=== PATIENT | female | born 1990 | race Caucasian/White ===

== ENCOUNTER 2018-10-17 14:11 | Outpatient (CLI) | payer OTHER ==
[2018-10-17 15:13] VITALS: PULSE 83; RESP 16; TEMP 99.5
--- NOTE | 2018-10-28 11:14 | P.MSEPDOC ---
Presenting Problems - Arrival Data Date of Arrival on Unit: 10/17/18 Time of Arrival on Unit: 14:25 Mode of Transport: Ambulatory - Complaint OB-Reason for Admission/Chief Complaint: Rule Out PROM Medical History - Information : 1 Para: 0 Term: 0 : 0 Abortions: Spontaneous or Elective: 0 Number of Living Children: 0 - Gestational Age Gestational Age by NOEL (wks/days): 34 Weeks and 3 Days - History Complications: Smoker Review of Systems - Review of Systems Constitutional: No problems Breast: No problems ENT: No problems Cardiovascular: No problems Respiratory: No problems Gastrointestinal: No problems Genitourinary: No problems Musculoskeletal: No problems Neurological: No problems Skin: No problems Vital Signs - Temperature Temperature: 99.5 F Temperature Source: Oral - Pulse Right Brachial Pulse Rate: 83 Pulse Assessment Method: Automatic Cuff - Respirations Respiratory Rate: 16 Oxygen Delivery Method: Room Air Medical Screen Scoring (Pre) - Cervical Exam Dilation: 0 cm = 0 Membranes: Intact - Uterine Contractions Frequency: N/A Duration: N/A Intensity: N/A - Maternal Vital Signs Maternal Temperature: N/A Maternal Blood Pressure: N/A Signs of Preeclampsia: N/A Maternal Respirations: N/A - Maternal Trauma Maternal Trauma: N/A - Assessment - Baby A Baseline FHR: 135 Heart Rate - NICHD Category: Category I (Normal) = 0 NST: Reactive Position: N/A Station: N/A - Total Score - Baby A Total Score - Baby A: 0 - Total Score - Baby B Total Score - Baby B: 0 - Total Score - Baby C Total Score - Baby C: 0 - Level of Risk - Baby A Level of Risk - Baby A: Low (0-5) - Level of Risk - Baby B Level of Risk - Baby B: Low (0-5) - Level of Risk - Baby C Level of Risk - Baby C: Low (0-5) Physician Notification (Post) - Physician Notified Physician Notified Date: 10/17/18 Physician Notified Time: 15:13 Physician/Practitioner Notified:: reggie Spoke With: reggie New Order Received: Yes - Notification Comment Comment: reported pt visit with concern of rom, reported negative amnisure, reactive nst, cervix close, think, high. Disposition - Disposition OB Disposition: Discharge to home Discharge Date: 10/17/18 Discharge Time: 15:15 I agree with the RN Medical Screening Exam: Yes Risk & Benefit of care provided described in d/c instruction: Yes Diagnosis: RELATED CONDITIONS, UNSPECIFIED, THIRD TRIMESTER
== END 2018-10-17 15:26 | disposition home or self-care (01) ==
LOC: FBPOP 14:11
PROVIDERS: ATTEND Obstetrics & Gynecology
DX: O26.93 Pregnancy related conditions, unspecified, third trimester (principal); Z3A.34 34 weeks gestation of pregnancy
CPT/HCPCS: 59025; 84112; G0463; 99213

== ENCOUNTER 2018-11-10 12:25 | Outpatient (CLI) | payer OTHER ==
[2018-11-10 14:09] VITALS: PULSE 72; RESP 18; TEMP 98.2
[2018-11-10 14:29] LABS: ALT 14 U/L (9-52); AST 15 U/L (14-36); African American GFR (CKD) >90 (>60 ml/min/1.73 sqM); Blood Urea Nitrogen 11 mg/dL (7-17); Uric Acid 4.3 mg/dL (3.7-7.4)
[2018-11-10 14:31] LABS: Glucose,Urine (UA) Negative (Negative); Ketones,Urine Negative (Negative); Protein,Urine Negative (Negative)
[2018-11-10 14:40] LABS: Basophils % (A) 0 %; Eosinophils % (A) 0 %; HCT 37.8 % (34.0-46.0); HGB 12.6 gm/dL (11.4-16.0); Lymphocytes # (A) 1.4 k/uL (1.0-4.8); Lymphocytes % (A) 11 %; MCH 31.2 pg (25.0-35.0); MCHC 33.5 g/dL (31.0-37.0); MCV 93.2 fL (80.0-100.0); Mean Platelet Volume 9.2; Monocytes # (A) 0.6 k/uL (0-1.0); Monocytes % (A) 5 %; Neutrophils # (A) 10.4 k/uL (1.3-7.7); Neutrophils % (A) 83 %; Platelet Count 252 k/uL (150-450); RBC 4.05 m/uL (3.80-5.40); RDW 14.3 % (11.5-15.5); WBC 12.6 k/uL (3.8-10.6)
[2018-11-10 16:21] VITALS: BP 135/72
--- NOTE | 2018-11-12 11:26 | P.MSEPDOC ---
Presenting Problems - Arrival Data Date of Arrival on Unit: 11/10/18 Time of Arrival on Unit: 12:35 Mode of Transport: Ambulatory - Complaint OB-Reason for Admission/Chief Complaint: Possible Onset of Labor, Rule Out SROM Comment: headache yesterday and visual issues that are not present today Medical History - Information : 1 Para: 0 Term: 0 : 0 Abortions: Spontaneous or Elective: 0 Number of Living Children: 0 - Gestational Age Gestational Age by NOEL (wks/days): 37 Weeks and 6 Days Review of Systems - Review of Systems Constitutional: No problems Breast: No problems ENT: No problems Cardiovascular: No problems Respiratory: No problems Gastrointestinal: No problems Genitourinary: No problems Musculoskeletal: No problems Neurological: No problems Skin: No problems Vital Signs - Temperature Temperature: 98.2 F Temperature Source: Oral - Pulse Right Brachial Pulse Rate: 72 Pulse Assessment Method: Automatic Cuff - Respirations Respiratory Rate: 18 Oxygen Delivery Method: Room Air - Blood Pressure Right Arm Blood Pressure: 135/72 Blood Pressure Mean: 93 Blood Pressure Source: Automatic Cuff Medical Screen Scoring (Pre) - Cervical Exam Dilation: 0 cm = 0 Effacement: Exam Deferred Membranes: Intact - Uterine Contractions Frequency: N/A Duration: N/A Intensity: N/A - Maternal Vital Signs Maternal Temperature: N/A Maternal Blood Pressure: N/A Signs of Preeclampsia: Headache = 1, Visual Disturbance = 1 Maternal Respirations: N/A - Maternal Trauma Maternal Trauma: N/A - Assessment - Baby A Baseline FHR: 125 Heart Rate - NICHD Category: Category I (Normal) = 0 NST: Reactive Position: N/A Station: N/A - Total Score - Baby A Total Score - Baby A: 2 - Total Score - Baby B Total Score - Baby B: 2 - Total Score - Baby C Total Score - Baby C: 2 - Level of Risk - Baby A Level of Risk - Baby A: Low (0-5) - Level of Risk - Baby B Level of Risk - Baby B: Low (0-5) - Level of Risk - Baby C Level of Risk - Baby C: Low (0-5) Physician Notification (Pre) - Physician Notified Spoke With: rolando New Order Received: Yes - Notification Comment Comment: discharge home. to keep next sched appt with dr paredes Medical Screen Scoring (Post) - Cervical Exam Dilation: Exam Deferred Effacement: Exam Deferred Membranes: Intact - Uterine Contractions Frequency: N/A Duration: N/A Intensity: N/A - Maternal Vital Signs Maternal Temperature: N/A Maternal Blood Pressure: N/A Signs of Preeclampsia: 3+ edema of dependent extremities = 2 Maternal Respirations: N/A - Maternal Trauma Maternal Trauma: N/A - Assessment - Baby A Heart Rate: 130 Heart Rate - NICHD Category: Category I (Normal) = 0 NST: Reactive Position: N/A Station: N/A - Total Score Total Score - Baby A: 2 Total Score - Baby B: 2 Total Score - Baby C: 2 - Post Treatment Level of Risk Post Treatment Level of Risk - Baby A: Low (0-5) Physician Notification (Post) - Physician Notified Physician Notified Date: 11/10/18 Physician Notified Time: 15:00 Spoke With: rolando New Order Received: Yes - Notification Comment Comment: discharge home Disposition - Disposition OB Disposition: Discharge to home Discharge Date: 11/10/18 Discharge Time: 15:15 I agree with the RN Medical Screening Exam: No Physician's MSE Comment: Inadequate documentation Risk & Benefit of care provided described in d/c instruction: No Diagnosis: 075.89
== END 2018-11-10 15:10 | disposition home or self-care (01) ==
LOC: FBPOP 12:25
PROVIDERS: ATTEND Obstetrics & Gynecology
DX: O75.89 Other specified complications of labor and delivery (principal); Z3A.37 37 weeks gestation of pregnancy
CPT/HCPCS: 59025; 82565; 84450; 84460; 84520; 84550; 85025; 81003; G0463; 99213

== ENCOUNTER 2018-11-11 03:55 | Outpatient (CLI) | payer OTHER ==
[2018-11-11 05:46] VITALS: BP 145/76; PULSE 79; RESP 18; TEMP 97.9
--- NOTE | 2018-11-12 11:27 | P.MSEPDOC ---
Presenting Problems - Arrival Data Date of Arrival on Unit: 11/11/18 Time of Arrival on Unit: 03:55 Mode of Transport: Wheelchair - Complaint OB-Reason for Admission/Chief Complaint: Possible Onset of Labor Comment: Contractions since 0100, every 4-5 minutes pain 5/10 Medical History - Information : 2 Para: 0 Term: 0 : 0 Abortions: Spontaneous or Elective: 1 Number of Living Children: 0 - Gestational Age Gestational Age by NOEL (wks/days): 38 Weeks and 0 Days Review of Systems - Review of Systems Constitutional: No problems Breast: No problems ENT: No problems Cardiovascular: No problems Respiratory: No problems Gastrointestinal: No problems Genitourinary: No problems Musculoskeletal: No problems Neurological: No problems Skin: No problems Vital Signs - Temperature Temperature: 97.9 F Temperature Source: Temporal Artery Scan - Pulse Right Brachial Pulse Rate: 79 Pulse Assessment Method: Automatic Cuff - Respirations Respiratory Rate: 18 Oxygen Delivery Method: Room Air O2 Sat by Pulse Oximetry: 99 - Blood Pressure Right Arm Blood Pressure: 145/76 Blood Pressure Mean: 99 Blood Pressure Source: Automatic Cuff Medical Screen Scoring (Pre) - Cervical Exam Dilation: 0 cm = 0 Effacement: Exam Deferred Membranes: Intact - Uterine Contractions Frequency: > or = 36 weeks =2 Duration: > 40 seconds = 2 Intensity: N/A - Maternal Vital Signs Maternal Temperature: N/A Signs of Preeclampsia: N/A Maternal Respirations: N/A - Maternal Trauma Maternal Trauma: N/A - Assessment - Baby A Baseline FHR: 135 Heart Rate - NICHD Category: Category I (Normal) = 0 NST: Reactive - Total Score - Baby A Total Score - Baby A: 4 - Total Score - Baby B Total Score - Baby B: 4 - Total Score - Baby C Total Score - Baby C: 4 - Level of Risk - Baby A Level of Risk - Baby A: Low (0-5) - Level of Risk - Baby B Level of Risk - Baby B: Low (0-5) - Level of Risk - Baby C Level of Risk - Baby C: Low (0-5) Physician Notification (Pre) - Physician Notified Physician Notified Date: 11/11/18 Physician Notified Time: 05:27 Spoke With: Kade New Order Received: Yes - Notification Comment Comment: No cervical change after 1 hour, pt d/c home, follow up wed as scheduled with Dr. Gonzalez Disposition - Disposition OB Disposition: Discharge to home, Written follow up instructions reviewed Discharge Date: 11/11/18 Discharge Time: 05:32 I agree with the RN Medical Screening Exam: Yes Risk & Benefit of care provided described in d/c instruction: Yes Diagnosis: FALSE LABOR AT OR AFTER 37 COMPLETED WEEKS OF GESTATION
== END 2018-11-11 05:34 | disposition home or self-care (01) ==
LOC: FBPOP 03:55
PROVIDERS: ATTEND Obstetrics & Gynecology
DX: O47.1 False labor at or after 37 completed weeks of gestation (principal); Z3A.38 38 weeks gestation of pregnancy
CPT/HCPCS: 59025; 84112; G0463; 99213

== ENCOUNTER 2018-11-12 08:05 | Inpatient (IN) | payer OTHER ==
[2018-11-12] MEDS: LACTATED RINGERS 1,000 ML IV SCH ×3 (10:05→19:26)
[2018-11-12] MEDS ORDERED: METHYLERGONOVINE 0.2 MG/ML 1 ML AMP IM PRN (11:04)
[2018-11-12] MEDS ORDERED: OXYTOCIN 10 UNIT/ML 1 ML VIAL IM PRN (11:04)
[2018-11-12] MEDS ORDERED: LIDOCAINE 0.5% (PF) 5 MG/ML (50 ML SDV) SQ PRN (11:04)
[2018-11-12] MEDS ORDERED: TERBUTALINE 1 MG/ML VIAL SQ PRN (11:04)
[2018-11-12] MEDS ORDERED: CARBOPROST TROMETHAMINE 250 MCG/ML 1 ML AMP IM PRN (11:04)
--- NOTE | 2018-11-12 11:12 | P.HPOB ---
History of Present Illness H&P Date: 11/12/18 Chief Complaint: Contractions This is a 28-year-old 2 para 0010 woman with an estimated due date of 11/25/2018 based on LMP consistent with first trimester ultrasound. She presents at 38 and one sevenths weeks gestation with worsening contractions over the last 24-48 hours. She did demonstrate cervical change in triage and is therefore admitted. She denies leakage of fluids or vaginal bleeding. She is felt good movement. Her has been monitored for suspected large for gestational age fetus. Ultrasound done at 35 weeks indicated estimated weight at 96 percentile. Obstetric history: Voluntary termination of 2008 Laboratory data: Blood type A+, antibody screen negative, rubella nonimmune, VDRL nonreactive, hepatitis B surface antigen negative, HIV negative, gonorrhea and chlamydia cultures negative, glucose tolerance testing within normal limits, group B strep negative Review of Systems All systems: negative Past Medical History Past Medical History: No Reported History History of Any Multi-Drug Resistant Organisms: None Reported Smoking Status: Current every day smoker Medications and Allergies Home Medications Medication Instructions Recorded Confirmed Type Pnv,Calcium 72/Iron/Folic Acid 1 tab PO DAILY 10/17/18 11/12/18 History [ Plus Tablet] Omeprazole [PriLOSEC] 40 mg PO DAILY 11/10/18 11/12/18 History Allergies Allergy/AdvReac Type Severity Reaction Status Date / Time Penicillins AdvReac Rash/Hives Verified 11/12/18 08:14 Exam Vital Signs Temp Pulse Resp BP 11/12/18 09:43 97.9 F 93 16 140/70 Intake and Output 11/11/18 11/12/18 11/12/18 22:59 06:59 14:59 Other: Weight 100.698 kg Targeted physical exam is performed. This is a somewhat uncomfortable-appearing female who is visibly gravid. She has 2+ swelling of the lower extremities. On pelvic examination the cervix is 4 cm dilated 80% effaced vertex is in the -3 station. Artificial rupture of membranes is undertaken and light meconium-stained fluid is noted. heart tones are category 1. She is piero every 2-3 minutes spontaneously. Assessment and Plan (1) 38 weeks gestation of Current Visit: Yes Status: Acute Code(s): Z3A.38 - 38 WEEKS GESTATION OF SNOMED Code(s): 46723380 (2) LGA (large for gestational age) fetus Current Visit: Yes Status: Acute Code(s): MGZ6131 - SNOMED Code(s): 548807379 (3) Rubella non-immune status, antepartum Current Visit: Yes Status: Acute Code(s): O99.89 - OTH DISEASES AND CONDITIONS COMPL PREG/CHLDBRTH; Z28.3 - UNDERIMMUNIZATION STATUS SNOMED Code(s): 762683972 (4) Spontaneous onset of labor Current Visit: Yes Status: Acute Code(s): AOT4700 - SNOMED Code(s): 95607021 (5) Meconium in amniotic fluid Current Visit: Yes Status: Acute Code(s): P96.83 - MECONIUM STAINING SNOMED Code(s): 1084839 (6) Obesity Current Visit: Yes Status: Acute Code(s): E66.9 - OBESITY, UNSPECIFIED SNOMED Code(s): 324281159 Plan: 28-year-old 2 para 0 woman admitted at 38 and one sevenths weeks gestation in spontaneous active labor. LGA, 96 percentile on ultrasound at 35 weeks gestation. status currently reassuring by external monitori ng. She may have analgesia upon request in active labor. Anticipate normal spontaneous vaginal delivery. She has Rh+ and group B strep negative, rubella nonimmune
[2018-11-12 11:13] VITALS: BMI 38.0
[2018-11-12] MEDS ORDERED: LACTATED RINGERS 1,000 ML IV SCH ×2 (11:15→20:30)
[2018-11-12 11:24] LABS: Basophils % (A) 0 %; Eosinophils % (A) 0 %; HCT 37.6 % (34.0-46.0); HGB 12.6 gm/dL (11.4-16.0); Lymphocytes # (A) 1.4 k/uL (1.0-4.8); Lymphocytes % (A) 8 %; MCH 31.1 pg (25.0-35.0); MCHC 33.5 g/dL (31.0-37.0); MCV 92.6 fL (80.0-100.0); Mean Platelet Volume 9.5; Monocytes # (A) 0.9 k/uL (0-1.0); Monocytes % (A) 5 %; Neutrophils # (A) 15.2 k/uL (1.3-7.7); Neutrophils % (A) 86 %; Platelet Count 251 k/uL (150-450); RBC 4.05 m/uL (3.80-5.40); RDW 15.4 % (11.5-15.5); WBC 17.7 k/uL (3.8-10.6)
[2018-11-12] MEDS: BUTORPHANOL 1 MG/ML 1 ML VIAL IV PRN ×2 (14:07→16:44)
[2018-11-12] MEDS ORDERED: OXYTOCIN 30 UNITS/500 ML NS 30 UNIT in SALINE 1 500ML.BAG IV SCH (16:30)
[2018-11-12] MEDS ORDERED: CITRIC ACID-SODIUM CITRATE 15 ML CUP PO ONE (18:59)
[2018-11-12] MEDS ORDERED: CLINDAMYCIN 600 MG in DEXTROSE 5% IN WATER 50 ML IVPB STA ×2 (19:02)
[2018-11-12] MEDS ORDERED: NALBUPHINE 10 MG/ML (1 ML AMP) ONE (19:26)
[2018-11-12] MEDS ORDERED: KETOROLAC 30 MG/ML 1 ML VIAL ONE (19:26)
[2018-11-12] MEDS ORDERED: DEXAMETHASONE SOD PHOS (MDV) 100 MG/10 ML VIAL ONE (19:26)
[2018-11-12] MEDS ORDERED: ONDANSETRON 4 MG/2 ML VIAL ONE (19:26)
[2018-11-12] MEDS ORDERED: MORPHINE SULFATE (PF) 0.3 MG/0.3 ML SYR ONE (19:26)
[2018-11-12] MEDS ORDERED: OXYTOCIN 10 UNIT/ML 1 ML VIAL ONE (19:26)
[2018-11-12] MEDS ORDERED: NALOXONE 0.4 MG/ML 1 ML VIAL IV PRN ×2 (19:55→20:22)
[2018-11-12] MEDS ORDERED: ONDANSETRON 4 MG/2 ML VIAL IVP PRN ×2 (19:55→20:22)
[2018-11-12] MEDS ORDERED: HYDROmorphone 1 MG/ML 1 ML SYRINGE IVP PRN (19:55)
[2018-11-12] MEDS ORDERED: diphenhydrAMINE 50 MG/ML 1 ML VIAL IVP PRN ×3 (19:55→20:22)
--- NOTE | 2018-11-12 20:21 | P.OP ---
Date of Procedure: 11/12/18 Preoperative Diagnosis: Intrauterine at 38 and one sevenths weeks gestation Arrestive descent and dilatation in the first stage LGA by ultrasound Postoperative Diagnosis: Intrauterine at 38-1/7 weeks gestation Arrest of dilatation in the first stage Occiput transverse position Nuchal cord 1 Procedure(s) Performed: Primary low transverse section Anesthesia: spinal Surgeon: Mary Braun Stem Processing Machine Operator #1: Junie Lemon Estimated Blood Loss (ml): 500 IV fluids (ml): 1,200 Urine output (ml): 50 Pathology: none sent Condition: stable Disposition: floor Indications for Procedure: This is a 28-year-old 2 para 0 woman who presented at 38 and one sevenths weeks gestation in spontaneous active labor. On admission she was proximal by 4 cm dilated and underwent artificial rupture of membranes. She was spontaneously piero however after several hours had no cervical change therefore Pitocin augmentation was initiated. Despite this, after approximate 6 hours she hadn't had no further cervical dilation and remained 5 cm dilated. It was palpable and malpresentation was suspected. She also was felt to be LGA, 96 percentile, by ultrasound in the office. She was counseled regarding options and chose to proceed with primary low transverse section. Risks of the procedure including bleeding, transfusion, infection, injury to the her internal structures and/or the were reviewed with the patient and consent was obtained. Operative Findings: Male infant in the left direct occiput transverse position, nuchal cord 1. Apgars 9 at 1 minute and 9 at 5 minutes weight 7 lbs. 6 oz., 3350 g. Intact, three-vessel cord placenta. Normal-appearing bilateral fallopian tubes, ovaries and uterus. Description of Procedure: After the patient was met preoperatively and all questions were answered, she was taken to the operating room where spinal anesthetic was administered without incident. She was then positioned, prepped and draped in the dorsal supine position with a leftward tilt. Mulligan catheter was placed. After anesthetic was confirmed adequate, a low transverse skin incision was made following the pre- existing scar. This was carried down to the underlying fascia both sharply and with the electrocautery. The fascia was then incised in the midline and extended bilaterally with the Reynaga scissors. The superior aspect of the fascial incision was elevated and the underlying rectus muscles dissected off sharply and with the electrocautery. The inferior aspect of the fascial incision was also elevated and the underlying rectus muscles dissected off sharply. The muscles were adherent in the midline. These were bluntly and the peritoneum was tented up with hemostats. The peritoneum was entered sharply with the Metzenbaum scissors. The peritoneal incision was extended inferiorly and superiorly with good visualization of the bladder. The bladder blade was placed. The vesicouterine peritoneum was identified, tented up and entered sharply, the bladder flap was created both sharply and digitally. A low transverse uterine incision was then made sharply and carried down to the underlying amniotic membranes. Membranes were ruptured and clear fluid was noted. The uterine incision was extended bilaterally bluntly. The infant's head was delivered from the incision without difficulty. Nuchal cord 1 was reduced. The nose and mouth were bulb suctioned. The rest of the infant was delivered onto the field without difficulty. And cut and the infant was taken to the warmer. An intact, three-vessel cord placenta was then manually removed and the uterus was exteriorized. The uterus was cleared of all clot and debris. The uterine incision was delineated with Islas clamps. The uterine incision was then closed in a running locked fashion with 0 Vicryl suture followed by second imbricating layer of the same. Additional [id number] osorio tures were placed where necessary along the incision for hemostasis. The uterus was then returned to the abdomen and the gutters were cleared of all clot and debris. The uterine incision was reinspected and Bovie electrocautery was utilized were necessary for hemostasis. The fascial edges, peritoneal edges and rectus muscles were inspected and Bovie electrocautery utilized were necessary for hemostasis. The fascia was then closed in a running fashion with 0 Vicryl suture. The subcuticular tissue was copiously suction irrigated and Bovie electrocautery utilized were necessary for hemostasis. 3-0 Vicryl suture was utilized to reapproximate the subcuticular tissue. The skin was then closed in a subcutaneous fashion with 4-0 Vicryl suture. All counts reported to me as correct by the operating room staff at the end of the procedure. The patient received antibiotics preoperatively and Pitocin following cord clamp. Mother and infant were both transported from the room in stable condition.
[2018-11-12] MEDS ORDERED: HYDROcodone/APAP 5-325MG 1 EACH TAB PO PRN (20:22)
[2018-11-12] MEDS ORDERED: MEASLES-MUMPS-RUBELLA VACC/PF 12,500 UNIT/0.5 ML VIAL SQ ONE (20:22)
[2018-11-12] MEDS ORDERED: diphenhydrAMINE 25 MG CAP PO PRN (20:22)
[2018-11-12] MEDS ORDERED: ZOLPIDEM 5 MG TAB PO PRN (20:22)
[2018-11-12] MEDS ORDERED: METOCLOPRAMIDE 5 MG/ML 2 ML VIAL IVP PRN (20:22)
[2018-11-12] MEDS ORDERED: diphenhydrAMINE 50 MG CAP PO PRN (20:22)
[2018-11-12] MEDS ORDERED: OXYTOCIN 20 UNITS/1000 ML NS 1,000 ML IV SCH (20:30)
[2018-11-12 21:23] LABS: ALT 13 U/L (9-52); AST 18 U/L (14-36); African American GFR (CKD) >90 (>60 ml/min/1.73 sqM); Blood Urea Nitrogen 14 mg/dL (7-17); Non-African American GFR(CKD) >90 (>60 ml/min/1.73 sqM)
[2018-11-13] MEDS: KETOROLAC 30 MG/ML 1 ML VIAL IVP PRN ×2 (04:16→16:01)
[2018-11-13 06:48] LABS: Basophils % (A) 0 %; Eosinophils % (A) 0 %; HCT 33.9 % (34.0-46.0); HGB 11.1 gm/dL (11.4-16.0); Lymphocytes # (A) 1.2 k/uL (1.0-4.8); Lymphocytes % (A) 5 %; MCH 30.8 pg (25.0-35.0); MCHC 32.9 g/dL (31.0-37.0); MCV 93.6 fL (80.0-100.0); Mean Platelet Volume 8.6; Monocytes # (A) 0.9 k/uL (0-1.0); Monocytes % (A) 4 %; Neutrophils # (A) 20.3 k/uL (1.3-7.7); Neutrophils % (A) 90 %; Platelet Count 256 k/uL (150-450); RBC 3.62 m/uL (3.80-5.40); RDW 14.5 % (11.5-15.5); WBC 22.5 k/uL (3.8-10.6)
[2018-11-13] MEDS: SENNOSIDES-DOCUSATE SODIUM 1 EACH TAB PO SCH ×2 (07:22→21:39)
--- NOTE | 2018-11-13 09:31 | P.PNOBGPC ---
Subjective - Subjective Principal diagnosis: Postop day 1 Interval history: Postop day 1 status post primary low transverse section for arrest of dilatation the first stage of labor. Pain well-controlled overnight. Minimal lochia Patient reports: Reports appetite normal, Reports voiding normally, Reports pain well controlled, Denies nauseated [place]: doing well Objective - Vital Signs Latest vital signs: Vital Signs Temp Pulse Resp BP Pulse Ox 11/13/18 07:28 98.6 F 75 16 122/66 98 11/13/18 04:00 98.6 F 83 16 123/76 97 11/13/18 02:00 97 11/13/18 00:55 97 11/13/18 00:00 99 F 67 16 129/62 96 11/12/18 22:55 16 11/12/18 22:04 74 16 140/67 94 L 11/12/18 21:34 62 16 128/58 11/12/18 21:03 86 16 136/71 11/12/18 20:55 86 16 160/73 97 11/12/18 20:48 86 16 160/73 97 11/12/18 20:33 85 16 173/77 11/12/18 20:18 98.4 F 87 18 163/70 94 L 11/12/18 09:43 97.9 F 93 16 140/70 Intake and Output 11/12/18 11/13/18 11/13/18 22:59 06:59 14:59 Intake Total 50 Output Total 50 1800 Balance 0 -1800 Intake: Oral 50 Output: Urine 50 1800 Uretheral (Mulligan) 900 Other: # Voids 1 1 - Exam Extremities: Present: edema Abdomen: Present: normal appearance, soft. Absent: tenderness Incision: Present: normal, dry, dressed Uterus: Present: normal, firm. Absent: tenderness - Labs Labs: Abnormal Lab Results - Last 24 Hours (Table) 11/12/18 11/13/18 Range/Units 10:05 06:24 WBC 17.7 H 22.5 H (3.8-10.6) k/uL RBC 3.62 L (3.80-5.40) m/uL Hgb 11.1 L (11.4-16.0) gm/dL Hct 33.9 L (34.0-46.0) % Neutrophils # 15.2 H 20.3 H (1.3-7.7) k/uL Assessment and Plan (1) 38 weeks gestation of Current Visit: Yes Status: Acute Code(s): Z3A.38 - 38 WEEKS GESTATION OF SNOMED Code(s): 35047620 (2) LGA (large for gestational age) fetus Current Visit: Yes Status: Acute Code(s): EGP0967 - SNOMED Code(s): 494828048 (3) Rubella non-immune status, antepartum Current Visit: Yes Status: Acute Code(s): O99.89 - OT DISEASES AND CONDITIONS COMPL PREG/CHLDBRTH; Z28.3 - UNDERIMMUNIZATION STATUS SNOMED Code(s): 702637252 (4) Spontaneous onset of labor Current Visit: Yes Status: Acute Code(s): UXS0239 - SNOMED Code(s): 60929282 (5) Meconium in amniotic fluid Current Visit: Yes Status: Acute Code(s): P96.83 - MECONIUM STAINING SNOMED Code(s): 5617384 (6) Obesity Current Visit: Yes Status: Acute Code(s): E66.9 - OBESITY, UNSPECIFIED SNOMED Code(s): 484206287 (7) Failure to progress in first stage of labor Current Visit: Yes Status: Acute Code(s): TIH3517 - SNOMED Code(s): 616145151 (8) S/P section Current Visit: Yes Status: Acute Code(s): Z98.891 - HISTORY OF UTERINE SCAR FROM PREVIOUS SURGERY SNOMED Code(s): 953997148 (9) Nuchal cord Current Visit: Yes Status: Acute Code(s): O69.82X0 - LABOR AND DEL COMP BY [facility] CORD ENTANGLE, W/O COMPRSN, UNSP SNOMED Code(s): 681496527 Plan: Postop day 1 status post primary low transverse section for arrest of descent and dilatation the first stage of labor. Findings were occiput transverse intraoperatively. She is recovering well. Routine care.
--- NOTE | 2018-11-13 10:27 | P.PN ---
Progress Note - Text Progress Note Date: 11/13/18 Postoperative day 1 status post section under spinal anesthesia, and i ntrathecal morphine given for postoperative analgesia, patient doing well, there is no anesthesia related complications, Patient had no headache, vital signs stable , Assessment and plan= postop day 1 status post , doing well there is no anesthesia related complication.
[2018-11-13] MEDS: IBUPROFEN 600 MG TAB PO PRN (21:39)
[2018-11-14] MEDS: ACETAMINOPHEN TAB 325 MG TAB PO PRN ×2 (01:28→07:47)
[2018-11-14] MEDS: IBUPROFEN 600 MG TAB PO PRN ×3 (06:09→19:19)
[2018-11-14] MEDS: SENNOSIDES-DOCUSATE SODIUM 1 EACH TAB PO SCH ×2 (07:47→19:19)
--- NOTE | 2018-11-14 09:38 | P.DS ---
Providers Date of admission: 11/12/18 10:57 Expected date of discharge: 11/14/18 Attending physician: Gustavo Gonzalez Primary care physician: Stated None - Discharge Diagnosis(es) (1) S/P section Current Visit: Yes Status: Acute Hospital Course: The patient is a 28-year-old 2 para 0010 admitted at 38 and one sevenths weeks by good dating parameters. She is admitted in early labor with all signs reassuring. She was having regular contractions with making little cervical change and therefore had Pitocin augmentation started she ultimately made progress to 5 cm at which time she arrested dilation and descent. She was therefore taken the operating room where she was delivered of a viable 7 lbs. 6 oz. baby boy with Apgars of 9 at 1 minute and 9 at 5 minute. Her postoperative course has been unremarkable with vital signs being stable and her temperature has been afebrile throughout. She was deemed stable for discharge on post ope rative day #2 was discharged home to follow-up in the office in 2 weeks for an incision check and 6 weeks routinely. Discharge instructions included calling for any significantly increased bleeding or foul-smelling lochia, significantly increased fever abdominal pain, perineal complaints, breast complaints, incisional complaints, or anything else that concerned her. She was additionally instructed to have nothing in the vagina for at least 6 weeks time and to abstain from any heavy lifting over the same period of time. She was lastly instructed to do no driving until off of all pain medications or 2 weeks' time, whichever came first. She understood all of her instructions and agrees to follow up as noted above. Discharge medications included continued vitamins as she has opted to breast-feed. She otherwise was provided with prescription for Tylenol No. 3, 1-2 by mouth every 6 hours when necessary pain, #20 dispensed with no refills. She additionally will continue to use [id number] analgesics as well. Maternal blood type is A+ and rubella status is nonimmune. She therefore was to receive the MMR vaccination prior to discharge. Discharge hemoglobin and hematocrit were 11.1 and 33.9 respectively. Procedures: #1. Pitocin augmentation #2. Artificial rupture of membranes #3. Primary low- transverse section Patient Condition at Discharge: Stable Plan - Discharge Summary New Discharge Prescriptions: No Action Pnv,Calcium 72/Iron/Folic Acid [ Plus Tablet] 1 tab PO DAILY Omeprazole [PriLOSEC] 40 mg PO DAILY Discharge Medication List Pnv,Calcium 72/Iron/Folic Acid [ Plus Tablet] 1 tab PO DAILY 10/17/18 [History] Omeprazole [PriLOSEC] 40 mg PO DAILY 11/10/18 [History] Follow up Appointment(s)/Referral(s): Gustavo Gonzalez MD [STAFF PHYSICIAN] - 2 Weeks Discharge Disposition: HOME SELF-CARE
[2018-11-14 16:22] VITALS: BP 127/68; PULSE 74; RESP 16; TEMP 98.3
== END 2018-11-14 20:05 | disposition home or self-care (01) | DRG 788 ==
LOC: FBPOP 08:05 → 4FBP 10:57
PROVIDERS: ADMIT Obstetrics & Gynecology; ATTEND Obstetrics & Gynecology
PROC: 3E0134Z Introduction of Serum, Toxoid and Vaccine into Subcutaneous Tissue, Percutaneous Approach (ICD-10-PCS; 2018-11-12)
PROC: 10D00Z1 Extraction of Products of Conception, Low, Open Approach (ICD-10-PCS; principal; 2018-11-12 19:42)
DX: O36.63X0 Maternal care for excessive fetal growth, third trimester, not applicable or unspecified (principal); O77.0 Labor and delivery complicated by meconium in amniotic fluid; O62.0 Primary inadequate contractions; O69.81X0 Labor and delivery complicated by cord around neck, without compression, not applicable or unspecified; O32.9XX0 Maternal care for malpresentation of fetus, unspecified, not applicable or unspecified; O99.334 Smoking (tobacco) complicating childbirth; F17.200 Nicotine dependence, unspecified, uncomplicated; O99.214 Obesity complicating childbirth; E66.9 Obesity, unspecified; Z37.0 Single live birth; Z28.3 Underimmunization status; Z23 Encounter for immunization; Z3A.38 38 weeks gestation of pregnancy
CPT/HCPCS: 59025; 81003; 82565; 84112; 84450; 84460; 84520; 84550; 85025; 86850; 86900; 86901; 90707; 96360; 99213; 99214